=== PATIENT | male | born 1995 | race African-American/Black ===

== ENCOUNTER 2018-03-12 16:14 | Emergency (ER) | payer MEDICAID ==
[~2018-03-12] VITALS: Ht 170.2 cm; Wt 69.0 kg
[2018-03-12] MEDS ORDERED: KETOROLAC 60MG/2ML VIAL IM ONE (20:00)
[2018-03-12 21:20] VITALS: BP 113/74
== END 2018-03-12 21:22 | disposition home or self-care (01) ==
LOC: ER 16:14
DX: M54.5 Low back pain (principal)
CPT/HCPCS: 72100; 96372; 99283; J1885

== ENCOUNTER 2019-09-21 22:43 | Emergency (ER) | payer SELFPAY ==
[~2019-09-21] VITALS: Ht 172.7 cm; Wt 69.0 kg
[2019-09-21 23:04] VITALS: BP 135/92
== END 2019-09-22 00:12 | disposition home or self-care (01) ==
LOC: ER 22:43
DX: Z00.00 Encounter for general adult medical examination without abnormal findings (principal)
CPT/HCPCS: 99281

== ENCOUNTER 2019-12-27 17:20 | Emergency (ER) | payer MEDICAID ==
[~2019-12-27] VITALS: Ht 172.7 cm; Wt 68.0 kg
[2019-12-27 17:27] VITALS: BP 144/77
[2019-12-27] MEDS ORDERED: LIDOCAINE HCL 1% 20ML VIAL (Pyxis) INJ INFIL ONE (19:00)
[2019-12-27] MEDS ORDERED: CEFTRIAXONE SODIUM 250 MG/VIAL IM ONE (19:00)
[2019-12-27] MEDS ORDERED: AZITHROMYCIN 500 MG TABLET PO ONE (19:00)
[2019-12-27 19:30] LABS: CLARITY URINE CLEAR (CLEAR); COLOR URINE YELLOW (YELLOW); KETONES URINE TRACE (NEGATIVE); LEUKOCYTE ESTERASE URINE NEGATIVE (NEGATIVE); NITRITE URINE NEGATIVE (NEGATIVE); OCCULT BLOOD URINE NEGATIVE (NEGATIVE); PH URINE 5.5 (4.5-8.0); PROTEIN URINE NEGATIVE (NEGATIVE); SPECIFIC GRAVITY URINE 1.032 (1.005-1.030); UROBILINOGEN URINE 0.2 E.U./dL (0.2-1.0)
== END 2019-12-27 22:40 | disposition home or self-care (01) ==
LOC: ER 17:20
DX: N34.2 Other urethritis (principal); J02.9 Acute pharyngitis, unspecified; Z20.828 Contact with and (suspected) exposure to other viral communicable diseases
CPT/HCPCS: 81003; 87070; 87430; 96372; 99283; J0696; J3490